=== PATIENT | female | born 1945 | race African-American/Black ===

== ENCOUNTER 2020-10-24 14:12 | Observation (INO) | payer MEDICARE, BC ==
[2020-10-24 14:57] LABS: #Eosinphils 0.1 10x3/uL (0.0-0.5); #Monocytes 0.4 10x3/uL (0.0-1.1); #Neutrophils 4.8 10x3/uL (1.5-8.4); %Basophils 0.3 % (0.0-2.0); %Eosinophils 1.3 % (0.0-6.0); %Lymphocytes 28.6 % (18.0-47.0); %Monocytes 5.4 % (0.0-10.0); Mean Corpuscular HGB CONC 31.5 g/dL (32.0-36.0); Mean Corpuscular Hemoglobin 27.6 pg (27.0-33.0); Mean Corpuscular Volume 87.6 fl (81.6-98.3); Mean Platelet Volume 9.3 fl (7.4-10.4); Platelet Count 276 10x3/uL (150-450); RBC Distribution Width 13.8 % (11.5-14.5); Red Blood Cell (RBC) Count 4.35 10x6/uL (3.90-5.03); White Blood Cell (WBC) Count 7.5 10x3/uL (3.5-10.5)
[2020-10-24] MEDS ORDERED: Aspirin 325 MG TAB ONE (14:57)
[2020-10-24 15:05] LABS: ALT (SGPT) 10 U/L (8-55); AST (SGOT) 11 U/L (5-34); Alkaline Phosphatase 82 U/L (40-110); Anion Gap 10 mmol/L (10-20); BUN (Urea Nitrogen) 8 mg/dL (9.8-20.1); Bilirubin, Total 0.6 mg/dL (0.2-1.2); Calc. Creatinine Clearance 0 mL/min (70-130); Calcium 8.8 mg/dL (7.8-10.44); Carbon Dioxide 28 mmol/L (23-31); Chloride 106 mmol/L (98-107); Glucose 144 mg/dL (83-110); Potassium 3.9 mmol/L (3.5-5.1); Sodium 140 mmol/L (136-145)
[2020-10-24] MEDS ORDERED: Acetaminophen 325 MG TAB PO PRN (15:53)
[2020-10-24] MEDS ORDERED: Ondansetron PF 4 MG/2 ML Vial IVP PRN (15:54)
[2020-10-24] MEDS ORDERED: Aspirin 325 MG TAB PO SCH (16:00)
[2020-10-24 17:33] VITALS: BMI 29.7
[2020-10-24 18:01] LABS: Troponin I Less than 0.010 ng/mL (< 0.028)
[2020-10-24] MEDS ORDERED: FLU VACC QS2020-21(65YR UP)/PF 240 MCG/0.7 ML SYRINGE IM ONE (19:30)
[2020-10-24 21:00] LABS: Troponin I Less than 0.010 ng/mL (< 0.028)
[2020-10-25 04:35] VITALS: BP 154/85; TEMP 98.3
[2020-10-25] MEDS ORDERED: Carvedilol 3.125 MG TAB PO SCH (08:00)
[2020-10-25] MEDS ORDERED: Aspirin Chewable 81 MG TAB PO SCH (09:00)
[2020-10-25] MEDS ORDERED: Clopidogrel Bisulfate 75 MG TAB PO SCH (09:00)
[2020-10-25] MEDS ORDERED: Ezetimibe 10 MG TAB PO SCH (09:00)
[2020-10-25] MEDS ORDERED: Amlodipine 5 MG TAB PO SCH (09:00)
[2020-10-25] MEDS ORDERED: Losartan 25 MG TAB PO SCH (09:00)
[2020-10-25 11:58] LABS: Hemoglobin A1c 5.9 % (4.0-6.0)
[2020-10-25 16:15] LABS: SARS-CoV-2 PCR by NAA Not Detected (NotDetected)
== END 2020-10-25 14:11 | disposition home or self-care (01) ==
LOC: CSHERS 14:12 → INTOOBSV 16:19 → CSHTELE 16:19
PROVIDERS: ADMIT Internal Medicine; ATTEND Internal Medicine
DX: I25.119 Atherosclerotic heart disease of native coronary artery with unspecified angina pectoris (principal); I73.9 Peripheral vascular disease, unspecified; I10 Essential (primary) hypertension; E78.5 Hyperlipidemia, unspecified; Z79.899 Other long term (current) drug therapy; Z95.5 Presence of coronary angioplasty implant and graft; Z95.1 Presence of aortocoronary bypass graft; Z90.49 Acquired absence of other specified parts of digestive tract; Z90.710 Acquired absence of both cervix and uterus; F17.210 Nicotine dependence, cigarettes, uncomplicated; Z20.822 Contact with and (suspected) exposure to COVID-19
CPT/HCPCS: 71045; 80053; 80061; 83036; 84484 ×2; 85025; 93005; 93306; 99285; G0378 ×3; U0003; U0005; 36415; 87635

== ENCOUNTER 2022-06-11 07:41 | Outpatient (CLI) | payer MEDICARE, BC | END 2022-06-11 07:42 | disposition home or self-care (01) | LOC: CSHCT 07:41 | PROVIDERS: ATTEND Family Medicine | DX: N28.89 Other specified disorders of kidney and ureter (principal) | CPT/HCPCS: 74178; 82565 ==

== ENCOUNTER 2022-07-01 15:21 | Outpatient (CLI) | payer MEDICARE, BC | END 2022-07-01 15:22 | disposition home or self-care (01) | LOC: CSHMAMMO 15:21 | PROVIDERS: ATTEND Family Medicine | DX: Z12.31 Encounter for screening mammogram for malignant neoplasm of breast (principal); Z80.3 Family history of malignant neoplasm of breast | CPT/HCPCS: 77063; 77067 ==

== ENCOUNTER 2023-08-28 17:38 | Emergency (ER) | payer MEDICARE, BC ==
[2023-08-28 18:59] LABS: SARS-CoV-2 NAA Rapid Test DETECTED (NotDetected)
== END 2023-08-28 19:12 | disposition home or self-care (01) ==
LOC: CSHERS 17:38
DX: U07.1 COVID-19 (principal); J01.90 Acute sinusitis, unspecified; I10 Essential (primary) hypertension; F17.210 Nicotine dependence, cigarettes, uncomplicated
CPT/HCPCS: 99283

== ENCOUNTER 2024-01-01 10:52 | Outpatient (CLI) | payer MEDICARE, BC | END 2024-01-01 10:53 | disposition home or self-care (01) | LOC: CSHLAB 10:52 | PROVIDERS: ATTEND Specialist | DX: Z01.818 Encounter for other preprocedural examination (principal); I25.10 Atherosclerotic heart disease of native coronary artery without angina pectoris; R93.1 Abnormal findings on diagnostic imaging of heart and coronary circulation | CPT/HCPCS: 80048; 85027; 85610; 93005; 93010 ==

== ENCOUNTER 2024-01-02 11:00 | Day surgery (SDC) | payer MEDICARE, BC ==
[~2024-01-02 11:00] MED LIST: Iopamidol 300 61% 100 ML VIAL FS ONE
[2024-01-02] MEDS ORDERED: Ascorbic Acid 500 mg Chewable Tablet ONE (11:32)
[2024-01-02] MEDS ORDERED: Aspirin 325 MG TAB ONE (11:32)
[2024-01-02] MEDS ORDERED: Heparin 10,000 UNITS/ 10 ML VIAL ONE (13:39)
[2024-01-02] MEDS ORDERED: Atropine Sulfate 1 mg/1 ml Vial ONE (13:39)
[2024-01-02] MEDS ORDERED: Adenosine 6 mg (2 mL) VIAL ONE (13:39)
[2024-01-02] MEDS ORDERED: Nitroglycerin 50 MG/250 ML BOT 250 ML ONE (13:39)
[2024-01-02] MEDS ORDERED: Lidocaine 1% (PF) 30 ML VIAL ONE (13:47)
[2024-01-02] MEDS ORDERED: fentaNYL 50 mcg/mL 1 mL Vial ONE (14:15)
[2024-01-02] MEDS ORDERED: Midazolam HCl 2 mg/2 ml Vial ONE (14:15)
[2024-01-02] MEDS ORDERED: Clopidogrel Bisulfate 300 MG TAB ONE (16:14)
== END 2024-01-02 18:30 | disposition home or self-care (01) ==
LOC: CSHSDC 11:00
PROVIDERS: ATTEND Specialist
PROC: 4A023N7 Measurement of Cardiac Sampling and Pressure, Left Heart, Percutaneous Approach (ICD-10-PCS; principal; 2024-01-02)
PROC: B2150ZZ Fluoroscopy of Left Heart using High Osmolar Contrast (ICD-10-PCS; 2024-01-02)
PROC: B2180ZZ Fluoroscopy of Left Internal Mammary Bypass Graft using High Osmolar Contrast (ICD-10-PCS; 2024-01-02)
DX: I25.118 Atherosclerotic heart disease of native coronary artery with other forms of angina pectoris (principal); R94.39 Abnormal result of other cardiovascular function study; Z95.5 Presence of coronary angioplasty implant and graft; Z95.1 Presence of aortocoronary bypass graft; I50.42 Chronic combined systolic (congestive) and diastolic (congestive) heart failure; I11.0 Hypertensive heart disease with heart failure; E78.5 Hyperlipidemia, unspecified; R07.89 Other chest pain; Z79.890 Hormone replacement therapy; Z79.899 Other long term (current) drug therapy; F17.210 Nicotine dependence, cigarettes, uncomplicated; Z88.8 Allergy status to other drugs, medicaments and biological substances; Z79.82 Long term (current) use of aspirin
CPT/HCPCS: 92978; 93459; C1725 ×2; C1753; C1760 ×2; C1769 ×2; C1874 ×3; C1887; C9604; J3010; 92937; 99152; 99153; J0153; J0461; J1644; J2001; J2250; Q9967

== ENCOUNTER 2024-03-04 09:09 | Outpatient (CLI) | payer MEDICARE, BC | END 2024-03-04 09:10 | disposition home or self-care (01) | LOC: CSHMAMMO 09:09 | PROVIDERS: ATTEND Family Medicine | DX: Z12.31 Encounter for screening mammogram for malignant neoplasm of breast (principal); Z80.3 Family history of malignant neoplasm of breast | CPT/HCPCS: 77063; 77067 ==

== ENCOUNTER 2024-08-13 09:03 | Outpatient (CLI) | payer MEDICARE, BC ==
[2024-08-13] MEDS ORDERED: Iopamidol 300 61% 100 ML VIAL FS ONE (12:19)
== END 2024-08-13 09:04 | disposition home or self-care (01) ==
LOC: CSHCT 09:03
PROVIDERS: ATTEND Internal Medicine Gastroenterology
DX: K63.89 Other specified diseases of intestine (principal)
CPT/HCPCS: 36415; 74177; 82565; Q9967

== ENCOUNTER 2025-04-10 14:17 | Emergency (ER) | payer MEDICARE, BC ==
[2025-04-10] MEDS ORDERED: Acetaminophen 500 MG TAB ONE (15:17)
== END 2025-04-10 18:11 | disposition home or self-care (01) ==
LOC: CSHERS 14:17
DX: M16.11 Unilateral primary osteoarthritis, right hip (principal); I10 Essential (primary) hypertension; F17.210 Nicotine dependence, cigarettes, uncomplicated
CPT/HCPCS: 72170

== ENCOUNTER 2025-04-14 14:59 | Outpatient (CLI) | payer MEDICARE, BC | END 2025-04-14 15:00 | disposition home or self-care (01) | LOC: CSHCT 14:59 | PROVIDERS: ATTEND Family Medicine | DX: M79.604 Pain in right leg (principal) ==

== ENCOUNTER 2025-05-02 21:31 | Inpatient (IN) | payer MEDICARE, BC ==
[2025-05-02] MEDS ORDERED: Senokot S 8.6-50 MG TAB PO PRN (23:12)
[2025-05-02] MEDS ORDERED: Calcium Carbonate 500 MG ChewTAB PO PRN (23:12)
[2025-05-02] MEDS ORDERED: Melatonin 3 MG TAB PO PRN (23:12)
[2025-05-02] MEDS ORDERED: Guaifenesin DM 100-10/5 ML UDCUP PO PRN (23:12)
[2025-05-02] MEDS ORDERED: Ondansetron PF 4 MG/2 ML Vial IVP PRN (23:12)
[2025-05-02] MEDS ORDERED: Nitroglycerin 0.4 MG TAB (25 Tab Bottle) SL PRN (23:14)
[2025-05-02 23:27] VITALS: BMI 23.1
[2025-05-03] MEDS: Acetaminophen 325 MG TAB PO PRN (00:12)
[2025-05-03] MEDS: HYDROcodone/Acetaminophen 5/325 mg Tablet PO PRN (00:12)
[2025-05-03 00:31] LABS: Troponin I 0.018 ng/mL (< 0.028)
[2025-05-03 04:41] LABS: ALT (SGPT) 10 U/L (Less than 34); AST (SGOT) 15 U/L (11-34); Albumin 3.2 g/dL (3.1-4.5); Alkaline Phosphatase 103 U/L (40-110); Anion Gap 13 mmol/L (10-20); BUN (Urea Nitrogen) 19 mg/dL (9.8-20.1); Bilirubin, Total 0.3 mg/dL (0.3-1.2); Calc. Creatinine Clearance 35 mL/min (70-130); Calcium 9.1 mg/dL (7.8-10.44); Carbon Dioxide 22 mmol/L (23-31); Chloride 109 mmol/L (98-107); Glucose 101 mg/dL (83-110); Potassium 4.3 mmol/L (3.5-5.1); Sodium 140 mmol/L (136-145)
[2025-05-03 04:42] LABS: Cardiac Risk 4.2 (Less than 4.5); Cholesterol 113.0 mg/dl (< 200 Desired); HDL Cholesterol 27.0 mg/dL (>60 Neg Risk); LDL Cholesterol, Calculated 49.0 mg/dL; Triglycerides 185.0 mg/dL (Less than 150)
[2025-05-03 04:50] LABS: Troponin I 0.014 ng/mL (< 0.028)
[2025-05-03 04:58] LABS: Bilirubin, Direct 0.2 mg/dL (0.1-0.3)
[2025-05-03] MEDS ORDERED: Metoprolol Succinate XL 25 MG ER.TAB PO SCH (09:00)
[2025-05-03] MEDS ORDERED: LOSARTAN POTASSIUM 100 MG PO SCH (09:00)
[2025-05-03] MEDS: Famotidine 20 MG TAB PO SCH (09:20)
[2025-05-03] MEDS: Estradiol 1 MG TAB PO SCH (09:20)
[2025-05-03] MEDS: Isosorbide Mononitrate 30 MG ER.TAB.S PO SCH (09:21)
[2025-05-03] MEDS: Losartan 50 MG TAB PO SCH (09:22)
[2025-05-03] MEDS: Enoxaparin 30 MG (0.3 mL) SYRINGE SC SCH (12:27)
[2025-05-03 12:57] LABS: Free T4 (Free Thyroxine) 1.18 ng/dL (0.70-1.48); Thyroid Stimulating Hormone 0.0876 uIU/mL (0.35-4.94)
[2025-05-03] MEDS: ALPRAZolam 0.25 MG TAB PO PRN (15:50)
[2025-05-03 19:39] LABS: Magnesium 2.2 mg/dL (1.6-2.6)
[2025-05-04 05:47] LABS: Anion Gap 11 mmol/L (10-20); BUN (Urea Nitrogen) 21 mg/dL (9.8-20.1); Calc. Creatinine Clearance 34 mL/min (70-130); Calcium 9.0 mg/dL (7.8-10.44); Carbon Dioxide 23 mmol/L (23-31); Chloride 109 mmol/L (98-107); Glucose 87 mg/dL (83-110); Potassium 4.6 mmol/L (3.5-5.1); Sodium 138 mmol/L (136-145)
[2025-05-04] MEDS: Enoxaparin 40 MG (0.4 mL) SYRINGE SC SCH (09:01)
[2025-05-04] MEDS: ALPRAZolam 0.25 MG TAB PO SCH (12:40)
[2025-05-04 17:31] VITALS: BP 130/84; TEMP 98.1
[2025-05-04] MEDS ORDERED: ALPRAZolam 0.25 MG TAB PO SCH (21:00)
== END 2025-05-04 17:55 | disposition home or self-care (01) | DRG 305 ==
LOC: CSHTELE 22:48 → OBSVTOIN 05-03 15:10
PROVIDERS: ADMIT Student in an Organized Health Care Education/Training Program; ATTEND Family Medicine
DX: I16.0 Hypertensive urgency (principal); N17.9 Acute kidney failure, unspecified; I50.42 Chronic combined systolic (congestive) and diastolic (congestive) heart failure; I47.19 Other supraventricular tachycardia; I13.0 Hypertensive heart and chronic kidney disease with heart failure and stage 1 through stage 4 chronic kidney disease, or unspecified chronic kidney disease; I25.118 Atherosclerotic heart disease of native coronary artery with other forms of angina pectoris; F41.9 Anxiety disorder, unspecified; F17.210 Nicotine dependence, cigarettes, uncomplicated; I27.20 Pulmonary hypertension, unspecified; E78.2 Mixed hyperlipidemia; I35.1 Nonrheumatic aortic (valve) insufficiency; E11.42 Type 2 diabetes mellitus with diabetic polyneuropathy; Z95.1 Presence of aortocoronary bypass graft; Z98.890 Other specified postprocedural states; Z95.5 Presence of coronary angioplasty implant and graft; Z86.0100 Personal history of colon polyps, unspecified; Z90.49 Acquired absence of other specified parts of digestive tract; Z90.710 Acquired absence of both cervix and uterus; Z79.899 Other long term (current) drug therapy; Z95.820 Peripheral vascular angioplasty status with implants and grafts; R00.1 Bradycardia, unspecified; Z71.6 Tobacco abuse counseling; E11.51 Type 2 diabetes mellitus with diabetic peripheral angiopathy without gangrene; N18.30 Chronic kidney disease, stage 3 unspecified; K21.9 Gastro-esophageal reflux disease without esophagitis; M79.604 Pain in right leg
CPT/HCPCS: 36415; 71045; 80048; 80053; 80061; 80076; 82550; 83735; 83880; 84439; 84443; 84484; 85025; 93005; 93010; 93306; 94760; G0378; J1650

== ENCOUNTER 2025-05-10 10:59 | Emergency (ER) | payer MEDICARE, BC ==
[2025-05-10 11:41] LABS: #Basophils Less than 0.03 10x3/uL (0.0-0.2); #Eosinophils 0.13 10x3/uL (0.0-0.5); #Monocytes 0.48 10x3/uL (0.0-1.1); #Neutrophils 6.42 10x3/uL (1.5-8.4); %Basophils 0.2 % (0.0-2.0); %Eosinophils 1.5 % (0.0-6.0); %Lymphocytes 19.5 % (18.0-47.0); %Monocytes 5.5 % (0.0-10.0); %Neutrophils 73.0 % (40.0-75.0); Hematocrit 24.7 % (34.9-44.5); Hemoglobin 7.7 g/dL (12.0-15.5); Mean Corpuscular Hemoglobin 27.3 pg (27.0-33.0); Mean Corpuscular Volume 87.6 fL (81.6-98.3); Platelet Count 341 10x3/uL (150-450); Red Blood Cell (RBC) Count 2.82 10x6/uL (3.90-5.03); White Blood Cell (WBC) Count 8.80 10x3/uL (3.5-10.5)
[2025-05-10 11:53] LABS: INR-International Normal Ratio 1.0; PTT 25.6 sec (22.0-33.0); Prothrombin Time 10.9 sec (9.5-12.1)
[2025-05-10 11:57] LABS: ALT (SGPT) 10 U/L (Less than 34); AST (SGOT) 16 U/L (11-34); Albumin 3.3 g/dL (3.1-4.5); Alkaline Phosphatase 86 U/L (40-110); Anion Gap 11 mmol/L (10-20); BUN (Urea Nitrogen) 14 mg/dL (9.8-20.1); Bilirubin, Total 0.3 mg/dL (0.3-1.2); Calc. Creatinine Clearance 0 mL/min (70-130); Calcium 8.7 mg/dL (7.8-10.44); Carbon Dioxide 21 mmol/L (23-31); Chloride 111 mmol/L (98-107); Globulin 2.3 g/dL (2.4-3.5); Glucose 98 mg/dL (83-110); Iron 62 ug/dL (50-170); Magnesium 1.9 mg/dL (1.6-2.6); Potassium 3.8 mmol/L (3.5-5.1); Sodium 139 mmol/L (136-145)
[2025-05-10 12:04] LABS: Troponin I 0.020 ng/mL (< 0.028)
== END 2025-05-10 12:18 | disposition home or self-care (01) ==
LOC: CSHERS 10:59
DX: D64.9 Anemia, unspecified (principal); I25.10 Atherosclerotic heart disease of native coronary artery without angina pectoris; I10 Essential (primary) hypertension; F17.210 Nicotine dependence, cigarettes, uncomplicated; Z79.02 Long term (current) use of antithrombotics/antiplatelets; Z79.899 Other long term (current) drug therapy
CPT/HCPCS: 36415; 80053; 83540; 83605; 83735; 84443; 84484; 85025; 85610; 85730; 86850; 86900; 86901; 93005; 99283